=== PATIENT | male | born 1955 | race Caucasian/White ===

== ENCOUNTER 2022-04-05 14:33 | Outpatient (CLI) | payer MEDICARE | END 2022-04-05 23:59 | disposition home or self-care (01) | LOC: CARD DIAG 14:33 | PROVIDERS: ATTEND Family Medicine | DX: I08.0 Rheumatic disorders of both mitral and aortic valves (principal); I11.9 Hypertensive heart disease without heart failure | CPT/HCPCS: 93306 ==